=== PATIENT | female | born 1995 | race African-American/Black ===

== ENCOUNTER 2019-07-05 11:03 | Inpatient (IN) | payer MEDICAID ==
[~2019-07-05] VITALS: Ht 160 cm; Wt 61.2 kg
[2019-07-05] MEDS ORDERED: CELEXA20 MG PO (11:23)
[2019-07-05 11:53] VITALS: BP 118/70; Ht 160 cm; Wt 61.2 kg
[2019-07-05 12:11] LABS: HEMOGLOBIN 10.4 g/dL (12-16); MCH 27.8 pg (26.0-34.0); MCHC 32.5 g/dL (31.0-37.0); MCV 85.6 fL (80.0-100.0); MEAN PLATELET VOLUME 11.4 fL (7.4-10.4); RBC 3.74 10x6/uL (4.00-5.40); RDW 13.4 % (11.5-14.5); WBC 7.3 10x3/uL (4.8-10.8)
--- NOTE | 2019-07-05 13:36 | NUR ---
1327 VIABLE BABY BOY DELIVERED, CORD BLOOD DONE AND SENT OUT, CLAUDE.
--- NOTE | 2019-07-05 14:17 | NUR ---
PALPATED FUNDUS FIRM AND MIDLINE
[2019-07-05 14:35] VITALS: BP 104/60
--- NOTE | 2019-07-05 14:37 | NUR ---
PT RECEIVED FROM RECOVERY VIA BED TO ROOM 1278. PT AAOx3, DENIES ANY PAIN OR NAUSEA. IV INFUSING PITOCIN ORDERED TO 18G PIV IN LEFT FOREARM. VSS, SEE FLOWSHEET FOR DOC. FF, ML, U/2. SMALL RUBRA LOCHIA, NO CLOTS EXPELLED WITH MASSAGE. BAKER CATH DRAINING CLEAR YELLOW URINE TO BEDSIDE DRAINAGE, APPROX 50ML NOTED IN UROMETER. BAKER TUBING SECURED VIA STAT LOCK TO INNER RIGHT THIGH. SCD'S TO LE BILAT AND ON PUMP. SRUx2, CL IN REACH. SIG OTHER ON BEDSIDE COUCH. WILL CONT TO MONITOR.
[2019-07-05 14:50] VITALS: BP 107/62
[2019-07-05 15:05] VITALS: BP 106/60
--- NOTE | 2019-07-05 15:35 | NUR ---
THIS RN AND RAFAEL JACOBSMANAGER EMPLOYEE RELATIONS PT TO [facility] VIA BED TO ROOM 1218 FOR PP CARE. RAFAEL JACOBS TO GIVE REPORT TO RAFAEL BAXTER.
--- NOTE | 2019-07-05 15:39 | NUR ---
RECEIVED PATIENT FROM LABOR AND DELIVERY VIA BED. IV INFUSING VIA PUMP @ 125CC/HOUR. FUNDUS FIRM 3 BELOW THE UMBILICUS. BLEEDING SMALL, RUBRA WITHOUT CLOTS. BAKER DRAINING DARK URINE TO GRAVITY. NO COMPLAINTS OF PAIN AT THIS TIME. PT STATES LEGS ARE STILL VERY NUMB.
--- NOTE | 2019-07-05 16:33 | NUR ---
INCISION BEGINNING TO HURT. REQUESTING PAIN MED.
--- NOTE | 2019-07-05 18:00 | NUR ---
PT STATES PERCOCET HAS NOT RELIEVED PAIN. PAIN UP FROM 5 TO 7. DILAUDID 1MG GIVEN SLOW IVP. REASSESS IN 30 MINUTES.
--- NOTE | 2019-07-05 18:38 | NUR ---
SITTING UP BED. FAMILY AT BEDSIDE. IN ROOM IN OPEN CRIB. PRECINCT I POLICE SERGEANT HAS BEEN IN TO SEE PATIENT AND DISCUSS BABY. PT. STATES PAIN LEVEL DOWN FROM 7-2. NO OTHER NEEDS OR COMPLAINTS AT THIS TIME.
--- NOTE | 2019-07-05 19:40 | NUR ---
ROUNDS WITH MANN AL. PT HAD A C SECTION THIS AFTERNOON. SHE IS AWAKE AND ALERT. SHE HAS MANY VISITORS, EXPLAINED THAT I WOULD BE BACK TO DO A FULL ASSESSMENT ON HER A LITTLE LATER.
[2019-07-05 19:45] VITALS: BP 107/54
--- NOTE | 2019-07-05 20:10 | NUR ---
PT IS AWAKE AND ALERT. PT STILL HAS MANY VISITORS. I ASKED THAT THEY ROTATE PEOPLE IN AND OUT SO THERE WOULDN'T BE SO MANY IN THE ROOM AT THE SAME TIME. PT DOES NOT HAVE A DRESSING TO HER INCISION. SHE HAS MEDIUM AMT OF LOCHIA PRESENT. FUNDUS IS FIRM. HEART SOUNDS WNL. LUNGS CLEAR. BOWEL SOUNDS FAINTLY HEARD. SHE HAS AN IV IN HER LEFT TOP WRIST. IT IS RUNNING AT 125ML/HR. SHE STATES THAT HER EPIDURAL HAS COMPLETELY WORN OFF. GAVE PT 1 MG DILAUDID AT 2005. SHE IS RESTING COMFORTABLY.
--- NOTE | 2019-07-05 21:40 | NUR ---
PT IS AGAIN ASKING FOR IV PAIN MED. I TOLD HER THAT IT HAD BARELY BEEN OVER AN HOUR SINCE HER PAIN MED AND THAT SHE COULD NOT HAVE PAIN MEDS NOW. I TOLD HER AT THE TWO HOUR АННА THAT I WOULD LET HER HAVE A PERCOCET.
--- NOTE | 2019-07-05 22:26 | NUR ---
PT TOOK PERCOCET 10 MG PO. SHE ALSO REQUESTED A SLEEPING PILL. BOTH WERE GIVEN. FOB STATES HE WILL STAY IN THE ROOM AND TAKE CARE OF THE BABY. IV CONT INFUSING WITH A NEW BAG OF FLUIDS.
[2019-07-06 00:02] VITALS: BP 106/651
--- NOTE | 2019-07-06 00:10 | NUR ---
VS TAKEN. PT IS STILL AWAKE. I TOLD HER SHE NEEDED TO REST. SHE SAYS SHE KNOWS AND WAS AFRAID SHE OVER DID IT. SHE STATES SHE IS GOING TO BED. AT 0003 PT RECEIVED PAIN MEDS PER REQUEST.
--- NOTE | 2019-07-06 00:15 | NUR ---
PT IS SLEEPING AT THIS TIME.
--- NOTE | 2019-07-06 02:10 | NUR ---
PT STILL SLEEPING. NO C.O BAKER DRAINING ORANGE COLORED URINE. FUNDUS FIRM
--- NOTE | 2019-07-06 03:00 | NUR ---
OLIVIA ROMOVED. 750 CC OF URINE WAS IN HER BAG. SHE GOT UP AND WALKED TO THE BATHROOM WITH HER MOTHER'S AND MY HELP. SHE WAS HURTING BADLY BUT MADE IT TO THE TOILET WHERE SHE VOIDED A UNMEASURED AMOUNT. HER MOTHER STATES SHE PASSES A DIME SIZED CLOT.
--- NOTE | 2019-07-06 03:38 | NUR ---
PT C/O PAIN AT INCISION SITE TO BE AT A 10. 2 MG DILAUDID WAS GIVEN IV. PT RESTING.
[2019-07-06 04:00] VITALS: BP 120/71
[2019-07-06 06:09] LABS: RAPID PLASMA REAGIN Non Reactive (Non Reactive)
--- NOTE | 2019-07-06 06:21 | NUR ---
PT IS AWAKE AND ALERT. SHE IS HOLDING HER BABY. SHE IS READY TO EAT. PAIN LEVEL IS A 3 NOW. IV FLUIDS STILL INFUSING
[2019-07-06 06:27] LABS: HEMATOCRIT 30.1 % (36.0-48.0); HEMOGLOBIN 9.7 g/dL (12-16); MCH 27.6 pg (26.0-34.0); MCHC 32.2 g/dL (31.0-37.0); MCV 85.8 fL (80.0-100.0); MEAN PLATELET VOLUME 11.3 fL (7.4-10.4); RBC 3.51 10x6/uL (4.00-5.40); RDW 13.4 % (11.5-14.5)
[2019-07-06 07:02] LABS: WBC 9.3 10x3/uL (4.8-10.8)
[2019-07-06 07:30] VITALS: BP 121/71
--- NOTE | 2019-07-06 07:30 | NUR ---
PT A&A AT THIS TIME SITTING UP IN BED. PT C/O OF PAIN.
--- NOTE | 2019-07-06 07:36 | NUR ---
PAIN MEDS GIVEN SEE EMAR.
--- NOTE | 2019-07-06 08:30 | NUR ---
DR. VAN TALKING W/ PT AT THIS TIME. PT UP WALKING IN HALLS W/ STEADY GAIT. DR. VAN NOTIFIED OF V/S THIS AM. NO NEW ORDERS RECIEVED AT THIS TIME.
--- NOTE | 2019-07-06 08:55 | NUR ---
PT A&A W/ NO C/O AT THIS TIME SITTING UP IN BED.
--- NOTE | 2019-07-06 09:09 | NUR ---
PT IN SHOWER.
--- NOTE | 2019-07-06 10:15 | NUR ---
PT UP CHANGING INFANTS DIAPER AT THIS TIME.
--- NOTE | 2019-07-06 11:33 | NUR ---
PT C/O ABD. PAIN SEE EMAR FOR PAIN MEDS GIVEN.
[2019-07-06 12:20] VITALS: BP 117/70
--- NOTE | 2019-07-06 12:20 | NUR ---
PT A&A W/ NO C/O AT THIS TIME. PT STATES "PAIN IS MUCH BETTER NOW." SEE EMAR.
--- NOTE | 2019-07-06 14:00 | NUR ---
PT A&A W/ NO C/O AT THIS TIME.
--- NOTE | 2019-07-06 14:53 | NUR ---
PT C/O GAS PAIN SEE EMAR. PT GIVEN PRUNE JUICE & ADVISED TO WALK HALLS. PT VOICED UNDERSTANDING.
--- NOTE | 2019-07-06 15:30 | NUR ---
PT WALKING IN HALLS W/ MOTHER. PT W/ STEADY GAIT.
--- NOTE | 2019-07-06 15:46 | NUR ---
PT C/O PAIN SEE EMAR FOR MEDS GIVEN.
[2019-07-06 16:00] VITALS: BP 119/73
--- NOTE | 2019-07-06 16:28 | NUR ---
PT IN SHOWER. PT'S MOTHER HELPING PT AT THIS TIME.
--- NOTE | 2019-07-06 16:43 | NUR ---
PT STATES "PAIN IS BETTER." PT A&A W/ FAMILY IN ROOM AT THIS TIME.
--- NOTE | 2019-07-06 18:20 | NUR ---
PT A&A W/ NO C/O AT THIS TIME. PT SITTING IN BED W/ FAMILY IN ROOM.
--- NOTE | 2019-07-06 19:30 | NUR ---
PT REQUEST PAIN MEDS. THIS WAS GIVEN.
--- NOTE | 2019-07-06 19:30 | NUR ---
ROUNDED WITH RAFAEL GUILLEN ON PT. SHE IS DOING VERY WELL AT THIS TIME. SHE HAS A SALINE LOCK. SHE HAS BEEN UP WALKING ALL DAY AND STATES HER GAS PAINS ARE GOING AWAY. SHE KEEPS THE BABY WITH HER FOR THE TIMES HE HAS TO GO TO THE NURSERY. EXPLAINED THAT I WOULD BE BACK LATER TO DO A FULL ASSESSMENT.
[2019-07-06 20:00] VITALS: BP 122/75
--- NOTE | 2019-07-06 20:20 | NUR ---
PT IN ROOM CROWDED WITH RELATIVES. SHE STATES SHE IS DOING WELL. SHE IS TOLERATING HER AMBULATION WELL. LOCHIA IS SMALL. PASSING GAS. HEART SOUNDS WNL. LUNGS CLEAR. BOWEL SOUNDS HEARD IN ALL QUADS. SALINE LOCK IN IPLACE IN HER LEFT WRIST. SITE LOOKS GOOD. INCISION LOOKS GOOD WITH NO DRAINAGE NOTED. SHE CONT TO STAY UP INSTEAD OF BEING IN BED. SKIN WARM AND DRY. FOB IS SO ATTENTIVE TO THE BABY. HE FEEDS, CHANGES, ETC... WITH BABY.
--- NOTE | 2019-07-06 21:00 | NUR ---
CONT VISITING WITH FAMILY. AMBULATING IN HALLS.NO C/0
[2019-07-07 00:28] VITALS: BP 103/73
--- NOTE | 2019-07-07 02:00 | NUR ---
STILL AWAKE TALKING WITH FORocky. SHE TELLS ME SHE IS GOING TO BED NOW.
--- NOTE | 2019-07-07 04:00 | NUR ---
VS TAKEN. PT IS RESTING NOW. NO C/O.
[2019-07-07 04:30] VITALS: BP 127/76
--- NOTE | 2019-07-07 05:24 | NUR ---
PT REQUESTED PAIN MEDS. GIVEN. SHE IS SITTING UP IN CHAIR OUT OF BED.
--- NOTE | 2019-07-07 06:25 | NUR ---
PT IS RESTING NOW. NO C/O,
[2019-07-07 08:10] VITALS: BP 113/66
--- NOTE | 2019-07-07 08:10 | NUR ---
PT A&A W/ NO C/O AT THIS TIME. PT STATED SHE IS FEELING BETTER TODAY & PASSING GAS.
--- NOTE | 2019-07-07 09:48 | NUR ---
PT C/O INCISIONAL PAIN SEE EMAR FOR MEDS GIVEN.
--- NOTE | 2019-07-07 10:18 | NUR ---
PT WALKING IN HALLS AT THIS TIME.
--- NOTE | 2019-07-07 10:30 | NUR ---
PT STATED "PAIN IS MUCH BETTER NOW."
[2019-07-07] MEDS ORDERED: IBUPROFEN800 MG PO (11:25)
[2019-07-07] MEDS ORDERED: PERCOCET 5-3251 TAB PO (11:26)
--- NOTE | 2019-07-07 11:50 | NUR ---
WRITTEN & VERBAL D/C INSTRUCTIONS REVIEWED W/ PT. PT VOICED UNDERSTANDING OF ALL INSTRUCTIONS INCLUDING TO MAKE FOLLOW UP WITH DR. VAN 2 WEEKS FROM DAY OF C/S. RX'S ALSO GIVEN TO PT AT THIS TIME.
--- NOTE | 2019-07-07 12:50 | NUR ---
IV D/C'ED AT THIS TIME W/ TIP INTACT.
--- NOTE | 2019-07-07 13:15 | NUR ---
PT D/C VIA WHEELCHAIR IN STABLE CONDITION W/ NO S/S OF DISTRESS.
== END 2019-07-07 13:15 | disposition home or self-care (01) | DRG 788 ==
LOC: D.WS 11:03 → D.LD 11:03 → D.WS 15:33
PROVIDERS: ADMIT Obstetrics & Gynecology; ATTEND Obstetrics & Gynecology
PROC: 10D00Z1 Extraction of Products of Conception, Low, Open Approach (ICD-10-PCS; principal; 2019-07-05 13:00)
DX: O34.211 Maternal care for low transverse scar from previous cesarean delivery (principal); Z3A.39 39 weeks gestation of pregnancy; Z37.0 Single live birth